=== PATIENT | female | born 1965 | race Caucasian/White ===

== ENCOUNTER 2020-04-10 20:31 | Emergency (ER) | payer OTHER ==
[~2020-04-10] VITALS: Ht 160 cm; Wt 118.2 kg
[2020-04-10] MEDS ORDERED: CLON0.1T83 PO (20:48)
[2020-04-10] MEDS ORDERED: METF-960 PO (20:48)
[2020-04-10] MEDS ORDERED: AMLO-258 PO (20:48)
[2020-04-10] MEDS ORDERED: OMEP20 PO (20:48)
[2020-04-10] MEDS ORDERED: LISI-660 PO (20:48)
[2020-04-10] MEDS ORDERED: SILVER NITRATE APPLICATOR 1 EA STICK TP ONE (21:00)
[2020-04-10] MEDS ORDERED: OXYMETAZOLINE HCL 0.05% 15 ML NASAL SPRAY NASAL ONE (21:00)
[2020-04-10 21:20] LABS: BASOPHILS % (AUTO) 0.6 % (0.0-2.0); EOSINOPHILS % (AUTO) 1.4 % (1.0-6.0); HEMATOCRIT 36.4 % (36-46); HEMOGLOBIN 12.3 g/dL (12.0-16.0); LYMPHOCYTES # (AUTO) 1.5 K/uL (1.0-4.8); LYMPHOCYTES % (AUTO) 18.2 % (22.0-44.0); MEAN CORPUSCULAR HEMOGLOBIN 28.4 pg (26.0-34.0); MEAN CORPUSCULAR HGB CONC 33.7 G/dL (31.0-37.0); MEAN CORPUSCULAR VOLUME 84 fL (80-100); MONOCYTES # (AUTO) 0.4 K/uL (0.1-1.0); MONOCYTES % (AUTO) 4.7 % (2.0-9.0); NEUTROPHILS # (AUTO) 6.2 K/uL (1.8-7.7); NEUTROPHILS % (AUTO) 75.1 % (40.0-70.0); PLATELET COUNT (AUTO) 210 K/uL (150-450); RED BLOOD CELL COUNT(AUTO) 4.32 MIL/uL (4.00-5.20); RED CELL DISTRIBUTION WIDTH 14.5 % (11.5-14.5)
[2020-04-10 21:28] LABS: CALCIUM, TOTAL 8.4 mg/dL (8.8-10.5); CREATININE 1.25 mg/dL (0.60-1.30); POTASSIUM 3.4 mmol/L (3.5-5.1)
[2020-04-10 21:34] LABS: ALBUMIN 3.7 g/dL (3.4-5.0); BILIRUBIN,TOTAL 0.4 mg/dL (0.1-1.0); TOTAL PROTEIN, SERUM 6.9 g/dL (6.4-8.2)
[2020-04-10 21:47] LABS: PROTHROMBIN TIME 10.3 SEC (9.4-11.6)
[2020-04-10] MEDS ORDERED: POTASSIUM CHLORIDE 20 MEQ ER TABLET PO ONE (22:00)
[2020-04-10] MEDS ORDERED: CloNIDine HCL 0.1 MG TABLET PO ONE (22:30)
[2020-04-10] MEDS ORDERED: ATENOLOL 50 MG TABLET PO ONE (22:30)
[2020-04-10 23:45] VITALS: BP 144/96
[2020-04-10] MEDS ORDERED: LISINOPRIL 10 MG TABLET PO ONE (23:45)
== END 2020-04-11 | disposition home or self-care (01) ==
LOC: EMS 20:35
DX: R04.0 Epistaxis (principal); I10 Essential (primary) hypertension
CPT/HCPCS: 86850; 86900; 86901